=== PATIENT | female | born 1995 | race Caucasian/White ===

== ENCOUNTER 2022-10-16 14:04 | Emergency (ER) | payer OTHER, SELFPAY ==
[2022-10-16 14:14] VITALS: BP 137/92; PULSE 71; RESP 18; TEMP 36.8; O2SAT 99; BMI 38.1
--- NOTE | 2022-10-16 14:36 | ED.DENTAL1 ---
HPI - Dental/Oral General Chief complaint: Dental/Oral Stated complaint: SWOLLEN FACE Time Seen by Provider: 10/16/22 14:16 Source: patient Mode of arrival: walk-in Limitations: no limitations History of Present Illness HPI Narrative: The patient presented to the ER with a right-sided dental pain that started yesterday and she mentioned that she have other dental issues and she was planned to have surgery for her teeth but she does not have time The patient denies any other complaints Related Data Previous Rx's Medication Instructions Recorded amoxicillin 875 mg-potassium 1 tab PO Q12H #20 tabs 10/16/22 clavulanate 125 mg tablet diclofenac sodium 75 mg 75 mg PO BID PRN pain #10 tabs 10/16/22 tablet,delayed release Allergies Allergy/AdvReac Type Severity Reaction Status Date / Time No Known Drug Allergies Allergy Verified 10/16/22 14:16 Review of Systems ROS Status of ROS 10 or more systems reviewed and unremarkable except as noted in history and below PFSH PFSH Social History Smoking status: Former smoker Exam Narrative Exam Narrative: Nurses notes and vital signs reviewed and patient is not hypoxic. Dental exam shows the patient have total decay of the teeth #1 as well as #32 they both have tenderness on palpation as well as gum inflammation, otherwise the patient have good dental hygiene Right-sided lymphadenopathy noted in her cervical area and no compromise of the airway no tonsillar edema General: Well-appearing and in no apparent distress. Skin: Warm, dry, no pallor noted. No rash. Head: Normocephalic, atraumatic. Neck: Supple, Eye: Pupils are equal, round and EOMI. No scleral icterus. Ears, Nose, Mouth, and Throat: TM are clear, no nasal mucosal hypertrophy. Oral mucosa is moist, no posterior oropharynx erythema, uvula is mid-line Cardiovascular: Regular Rate and Rhythm without murmur, gallop or rub. Respiratory: No accessory muscle use or respiratory distress. Lungs are clear to auscultation, no wheezing, rales or rhonchi Chest Wall: no tenderness Back: No midline thoracic or lumbar vertebral tenderness. No CVA tenderness Musculoskeletal: normal ROM, no calf or popliteal tenderness, no lower extremity edema/swelling GI: Abdomen is soft, non-distended. Normal bowel sounds. No masses appreciated. No tenderness to palpation. No rebound, guarding, or rigidity noted. Neurological: A&O x4. No cranial nerve dysfunction observed. No truncal ataxia. Moves all extremities. Sensation intact. Psychiatric: Cooperative and interactive. Normal mood and affect. Constitutional Vital Signs, click to edit/add: Last Vital Signs Temp 98.2 F 10/16/22 14:14 Pulse 71 10/16/22 14:14 Resp 18 10/16/22 14:14 BP 137/92 H 10/16/22 14:14 Pulse Ox 99 10/16/22 14:14 O2 Del Method Room Air 10/16/22 14:14 Course Vital Signs Vital signs: Vital Signs Temperature 98.2 F 10/16/22 14:14 Pulse Rate 71 10/16/22 14:14 Respiratory Rate 18 10/16/22 14:14 Blood Pressure 137/92 H 10/16/22 14:14 Pulse Oximetry 99 10/16/22 14:14 Oxygen Delivery Method Room Air 10/16/22 14:14 Temperature 98.2 F 10/16/22 14:14 Pulse Rate 71 10/16/22 14:14 Respiratory Rate 18 10/16/22 14:14 Blood Pressure 137/92 H 10/16/22 14:14 Pulse Oximetry 99 10/16/22 14:14 Oxygen Delivery Method Room Air 10/16/22 14:14 MDM - Dental/Oral MDM Narrative Medical decision making narrative: The patient presenting to us with a dental infection right now should be treated with Voltaren as well as Augmentin referred to the dentist with outpatient The patient is to follow up with primary care physician in next 2-3 days or to return to the emergency department should any of the signs or symptoms worsen or new symptoms develop. The patient agrees with the following Diagnosis and Treatment plan and the patient will be discharged home. Discharge Plan Discharge Chief Complaint: Dental/Oral Clinical Impression: Dental abscess Patient Disposition: Home, Self-Care Time of Disposition Decision: 14:27 Condition: Good Mode of Transportation: Private Vehicle Prescriptions / Home Meds: New amoxicillin-pot clavulanate 875-125 mg tablet 1 tab PO Q12H Qty: 20 0RF diclofenac sodium 75 mg tablet,delayed release (DR/EC) 75 mg PO BID PRN (Reason: pain) Qty: 10 0RF Instructions: Dental Abscess (ED) Stand Alone Forms: Portal Instructions Referrals: Shaikh Guillen MD [Primary Care Provider] - 1 week
[2022-10-16] MEDS: BENZOCAINE 30 ML, lidocaine HCL 15 ML MM (14:38)
[2022-10-16] MEDS: KETOROLAC TROMETHAMINE 30 MG/ML VIAL IM (14:38)
--- NOTE | 2022-10-16 15:26 | ED.DENTAL1 ---
HPI - Dental/Oral General Chief complaint: Dental/Oral Stated complaint: SWOLLEN FACE Time Seen by Provider: 10/16/22 14:16 Source: patient Mode of arrival: walk-in Limitations: no limitations Related Data Previous Rx's Medication Instructions Recorded amoxicillin 875 mg-potassium 1 tab PO Q12H #20 tabs 10/16/22 clavulanate 125 mg tablet diclofenac sodium 75 mg 75 mg PO BID PRN pain #10 tabs 10/16/22 tablet,delayed release Allergies Allergy/AdvReac Type Severity Reaction Status Date / Time No Known Drug Allergies Allergy Verified 10/16/22 14:16 PFSH PFS Social History Smoking status: Former smoker Exam Constitutional Vital Signs, click to edit/add: Last Vital Signs Temp 98.2 F 10/16/22 14:14 Pulse 71 10/16/22 14:14 Resp 18 10/16/22 14:14 BP 137/92 H 10/16/22 14:14 Pulse Ox 99 10/16/22 14:14 O2 Del Method Room Air 10/16/22 14:14 Course Vital Signs Vital signs: Vital Signs Temperature 98.2 F 10/16/22 14:14 Pulse Rate 71 10/16/22 14:14 Respiratory Rate 18 10/16/22 14:14 Blood Pressure 137/92 H 10/16/22 14:14 Pulse Oximetry 99 10/16/22 14:14 Oxygen Delivery Method Room Air 10/16/22 14:14 Temperature 98.2 F 10/16/22 14:14 Pulse Rate 71 10/16/22 14:14 Respiratory Rate 18 10/16/22 14:14 Blood Pressure 137/92 H 10/16/22 14:14 Pulse Oximetry 99 10/16/22 14:14 Oxygen Delivery Method Room Air 10/16/22 14:14 Discharge Plan Discharge Chief Complaint: Dental/Oral Clinical Impression: Dental abscess Patient Disposition: Home, Self-Care Time of Disposition Decision: 14:27 Condition: Good Mode of Transportation: Private Vehicle Prescriptions / Home Meds: New amoxicillin-pot clavulanate 875-125 mg tablet 1 tab PO Q12H Qty: 20 0RF diclofenac sodium 75 mg tablet,delayed release (DR/EC) 75 mg PO BID PRN (Reason: pain) Qty: 10 0RF Instructions: Dental Abscess (ED) Stand Alone Forms: Portal Instructions Referrals: Shaikh Guillen MD [Primary Care Provider] - 1 week Discharge Date/Time: 10/16/22 14:44
== END 2022-10-16 14:44 | disposition home or self-care (01) ==
PROVIDERS: Emergency Provider Emergency Medicine; PCP Internal Medicine
DX: K04.7 Periapical abscess without sinus (principal); Z87.891 Personal history of nicotine dependence
CPT/HCPCS: 96372; 99284

== ENCOUNTER 2023-03-25 13:00 | Emergency (ER) | payer OTHER, SELFPAY ==
[2023-03-25 13:04] VITALS: BP 146/100; PULSE 105; RESP 18; TEMP 36.6; O2SAT 100; BMI 31.5
--- NOTE | 2023-03-25 13:31 | ED.DENTAL1 ---
HPI - Dental/Oral General Chief complaint: Dental/Oral Stated complaint: TOOTH/MOUTH PAIN Time Seen by Provider: 03/25/23 13:11 Source: patient Mode of arrival: walk-in Limitations: no limitations History of Present Illness HPI Narrative: 27-year-old female presents for toothache. She is complaining of pain to the left lower jaw posteriorly and she has a dentist appointment on the . She came in to get something for pain and an antibiotic. The pain is throbbing and moderate and continuous. No difficulty breathing or swallowing. Related Data Previous Rx's Medication Instructions Recorded amoxicillin 875 mg-potassium 1 tab PO Q12H #20 tabs 10/16/22 clavulanate 125 mg tablet diclofenac sodium 75 mg 75 mg PO BID PRN pain #10 tabs 10/16/22 tablet,delayed release acetaminophen 300 mg-codeine 30 mg 1 tab PO Q6H PRN pain 5 days #20 03/25/23 tablet tabs ibuprofen 800 mg tablet 800 mg PO Q8H PRN pain #20 tabs 03/25/23 penicillin V potassium 250 mg 250 mg PO QID 10 days #40 tabs 03/25/23 tablet Allergies Allergy/AdvReac Type Severity Reaction Status Date / Time No Known Drug Allergies Allergy Verified 10/16/22 14:16 Review of Systems ROS Narrative A ten point review of systems is negative except as noted above. PFSH PFSH Social History Smoking status: Never smoker Exam Narrative Exam Narrative: Nurses note and vital signs reviewed and patient is not hypoxic. General: The patient appears well and in no apparent distress. Patient is resting comfortably on cart. Skin: Warm, dry, no pallor noted. There is no rash noted. Head: Normocephalic, atraumatic Eye: Normal conjunctiva, no drainage Ears, Nose, Mouth, and Throat: oral mucosa is moist. Nares patent. No facial swelling or erythema. Dental caries is noted in the left mandibular posterior teeth. No bleeding or pus present. No swelling to the floor of her mouth. She is handling her oral secretions well. Cardiovascular: Regular Rate and Rhythm Respiratory: Patient is in no distress, no accessory muscle use, lungs are clear to auscultation, no wheezing, rales or rhonchi Back: non-tender GI: Soft and nontender Musculoskeletal: No joint swelling Neurological: A&O, normal speech Psychiatric: Cooperative Constitutional Vital Signs, click to edit/add: Last Vital Signs Temp 97.9 F 03/25/23 13:04 Pulse 105 H 03/25/23 13:04 Resp 18 03/25/23 13:04 BP 146/100 H 03/25/23 13:04 Pulse Ox 100 03/25/23 13:04 O2 Del Method Room Air 03/25/23 13:04 Course Vital Signs Vital signs: Vital Signs Temperature 97.9 F 03/25/23 13:04 Pulse Rate 105 H 03/25/23 13:04 Respiratory Rate 18 03/25/23 13:04 Blood Pressure 146/100 H 03/25/23 13:04 Pulse Oximetry 100 03/25/23 13:04 Oxygen Delivery Method Room Air 03/25/23 13:04 Temperature 97.9 F 03/25/23 13:04 Pulse Rate 105 H 03/25/23 13:04 Respiratory Rate 18 03/25/23 13:04 Blood Pressure 146/100 H 03/25/23 13:04 Pulse Oximetry 100 03/25/23 13:04 Oxygen Delivery Method Room Air 03/25/23 13:04 MDM - Dental/Oral MDM Narrative Medical decision making narrative: Just provided prescriptions for pain medicine and antibiotic. Follow-up with dentistry as scheduled. Treatment diagnosis and follow-up were discussed with the patient. Differential Diagnosis Differential diagnosis: Likely gingival abscess, dental caries, toothache, dental abscess and fracture of tooth Discharge Plan Discharge Chief Complaint: Dental/Oral Clinical Impression: Toothache, Dental caries Patient Disposition: Home, Self-Care Time of Disposition Decision: 13:29 Condition: Good Mode of Transportation: Private Vehicle Prescriptions / Home Meds: New acetaminophen-codeine 300-30 mg tablet 1 tab PO Q6H PRN (Reason: pain) 5 Days Qty: 20 0RF penicillin V potassium 250 mg tablet 250 mg PO QID 10 Days Qty: 40 0RF ibuprofen 800 mg tablet 800 mg PO Q8H PRN (Reason: pain) Qty: 20 0RF No Action amoxicillin-pot clavulanate 875-125 mg tablet 1 tab PO Q12H Qty: 20 0RF diclofenac sodium 75 mg tablet,delayed release (DR/EC) 75 mg PO BID PRN (Reason: pain) Qty: 10 0RF Stand Alone Forms: Portal Instructions Referrals: Shaikh Guillen MD [Primary Care Provider] - 1 week
[2023-03-25 13:36] VITALS: BP 107/63; PULSE 88; RESP 18; O2SAT 99
== END 2023-03-25 13:37 | disposition home or self-care (01) ==
PROVIDERS: Emergency Provider Emergency Medicine; PCP Internal Medicine
DX: K02.9 Dental caries, unspecified (principal); K08.89 Other specified disorders of teeth and supporting structures
CPT/HCPCS: 99283

== ENCOUNTER 2023-06-21 20:31 | Emergency (ER) | payer OTHER, SELFPAY ==
[2023-06-21 20:34] VITALS: BP 130/88; PULSE 100; TEMP 36.9; O2SAT 98; BMI 30.1
--- NOTE | 2023-06-21 20:41 | XR_ITS ---
The [address] [address] Patient Name: RAJ JOLLEY MRN: [id number] date: 1995 Sex: F Assigned Patient Location: ER Current Patient Location: ED.MAIN Accession/Order Number: [id number] Exam Date: 06/21/2023 20:55 Report Date: 06/21/2023 21:44 At the request of: YODIT MARKER Procedure: XR finger RT min 2V XR finger RT min 2V, 06/21/2023 7:55 PM CDT: History: right thumb injury. . Comparison: None. Technique: 3 views right thumb Findings/Impression: There is no fracture or malalignment. The soft tissues are normal. Electronically authenticated by: MAY VAUGHN Date: 06/21/2023 21:44
--- NOTE | 2023-06-21 20:48 | ED.UPPEXIN1 ---
HPI HPI - Extremity Injury (Upper) General Chief Complaint: Extremity Injury, Upper Stated Complaint: Upper Injury Time Seen by Provider: 06/21/23 20:41 Source: patient Mode of arrival: walk-in Limitations: no limitations History of Present Illness HPI narrative: This 27-year-old female who is right-hand dominant presents for evaluation of a right thumb injury. The patient was mopping her floors at home and slipped on the wet floors and fell backwards. She attempted to break her fall with her right hand and injured her right thumb. She denies any head injury. She has no neck or back pain. The injury occurred about 2-1/2 hours ago. She took 2 Tylenol prior to arrival. She has pain at the right thenar eminence which radiates to the distal end of the right thumb. She has no numbness or tingling. No additional injuries or complaints. Related Data Allergies Allergy/AdvReac Type Severity Reaction Status Date / Time No Known Drug Allergies Allergy Verified 06/21/23 20:39 Opioid HPI Opioid Management Most Recent Pain and Opioid Data: Last Pain Scale 5 06/21/23 21:17 Review of Systems ROS Status of ROS 10 or more systems reviewed and unremarkable except as noted in history and below [facility] Social History Smoking status: Never smoker Exam Narrative Exam Narrative: Vital signs and Nursing Notes reviewed: Vital signs are normal General: Awake, alert, oriented, uncomfortable appearing female. She is holding her right thumb area on a bag of ice, GCS 15, no respiratory distress HEENT: Normocephalic atraumatic Neck: Supple, no midline bony vertebral tenderness or step-off Chest: Lungs are clear to auscultation with good air entry, there is no wheezing rhonchi or rales appreciated no accessory muscle use, patient is speaking in complete sentences-no chest wall tenderness to palpation CVS: Regular rate and rhythm S1-S2, no murmurs rubs or gallops, pulses are brisk and equal bilaterally Extremities: There is tenderness and mild swelling at the right thenar eminence. Increased pain with axial loading of the thumb. Patient is able to approximate thumb and all fingers loosely but this causes discomfort in the thumb area when she approximate the thumb and the fourth and fifth finger. No bony deformity noted. Radial pulses brisk. Capillary refill in the fingers is less than 2 seconds Skin: Normal in appearance without rash,pallor, petechiae or purpura Neuro: No focal deficits Constitutional Vital Signs, click to edit/add: Last Vital Signs Temp 98.4 F 06/21/23 20:34 Pulse 100 H 06/21/23 20:34 Resp 16 06/21/23 20:34 BP 130/88 06/21/23 20:34 Pulse Ox 98 06/21/23 20:34 O2 Del Method Room Air 06/21/23 20:34 Course Vital Signs Vital signs: Vital Signs Temperature 98.4 F 06/21/23 20:34 Pulse Rate 100 H 06/21/23 20:34 Respiratory Rate 16 06/21/23 20:34 Blood Pressure 130/88 06/21/23 20:34 Pulse Oximetry 98 06/21/23 20:34 Oxygen Delivery Method Room Air 06/21/23 20:34 Temperature 98.4 F 06/21/23 20:34 Pulse Rate 100 H 06/21/23 20:34 Respiratory Rate 16 06/21/23 20:34 Blood Pressure 130/88 06/21/23 20:34 Pulse Oximetry 98 06/21/23 20:34 Oxygen Delivery Method Room Air 06/21/23 20:34 MDM - Extremity Injury (Upper) MDM Narrative Medical decision making narrative: This 19-year-old female who is right-hand dominant presents for evaluation of a right thumb injury. She was mopping the floor when she slipped and fell backwards and braced her fall with her right hand which ended up underneath her. She has tenderness and mild swelling at the thenar eminence. She is neurologically intact. She had taken Tylenol prior to arrival and was medicated with ibuprofen in the emergency department. X-ray of the right thumb was ordered and does not show any sign of fracture or dislocation. Procedure note: Splint care without manipulation. A Sands wrap was applied to the right thumb and hand to immobilize the right thumb by myself. Patient tolerated procedure well. Medical Records Medical records narrative: The [address] [address] XRay Report Signed Patient: RAJ JOLLEY MR#: [id number] : 1995 Acct:[id number] Age/Sex: 27 / F ADM Date: 06/21/23 Loc: ER Attending Dr: Ordering Physician: Leyla De La Garza Date of Service: 06/21/23 Procedure(s): XR finger RT min 2V Accession Number(s): [id number] cc: Shaikh Logan Guillen; Leyla De La Garza~ The [address] [address] Patient Name: RAJ JOLLEY MRN: [id number] date: 1995 Sex: F Assigned Patient Location: ER Current Patient Location: ED.MAIN Accession/Order Number: [id number] Exam Date: 06/21/2023 20:55 Report Date: 06/21/2023 21:44 At the request of: LEYLA DE LA GARZA Procedure: XR finger RT min 2V XR finger RT min 2V, 06/21/2023 7:55 PM CDT: History: right thumb injury. . Comparison: None. Technique: 3 views right thumb Findings/Impression: There is no fracture or malalignment. The soft tissues are normal. Electronically authenticated by: MAY VAUGHN Date: 06/21/2023 21:44 Discharge Plan Discharge Stand Alone Forms: Portal Instructions Chief Complaint: Extremity Injury, Upper Clinical Impression: Fall from standing, Sprain of right thumb Patient Disposition: Home, Self-Care Time of Disposition Decision: 21:39 Condition: Good Print Language: Kyrgyz Instructions: Finger Sprain (ED) Referrals: Rickey Pritchard MD [Physician] - 1 week Shaikh Guillen MD [Primary Care Provider] - 1 week
--- OUTSIDE RECORDS SUMMARY | 2023-06-21 20:52 | XMS_ITS | CCD ---
Author Organization [facility] Care Team Providers Care Pcmh Specialist Name Role Phone DR CARLI KABA Consulting Unavailable JHON, DR BOYCE Admitting Unavailable JHON, DR BOYCE [facility]ending Un[facility] Unavailable PATRICIA EVANS Consulting Unavailable JHON, DR BOYCE Procedure Practitioner Unavailab le JHON, DR BOYCE Consulting Unavailable JHON, DR BOYCE Admitting Unavailable JHON, DR BOYCE Attending Un[facility] Unavailable JHON, DR BOYCE Attending Unavailable JHON, DR BOYCE Consulting Unavailable JHON, DR BOYCE Admitting Unavailable FA[facility]AD, [facility] Primary Care Unavailable KATSETH SQUIRES Consulting Unavailable FAWWAD, [facility] Primary Care Unavailable KATKO SETH Do Admitting Unavailable KATSETH SQUIRES Attending Unavailable KATSETH SQUIRES Attending Unavailable FAWWAD, [facility] Primary Care Unavailable KATKO SETH D Consulting Unavailable LITZY SETH D Admitting Unavailable MARKER, DR MONSIVAIS Admitting Unavailable MARKER, DR MONSIVAIS Attending Unavailable MARKER, DR MONSIVAIS Consulting Unavailable WNHD, [facility] Primary Care Unavailable DR JUVENAL NARVAEZ Admitting Unavailable BRICE, DR JUVENAL Berry Attending Unavailable FA[facility]AD, [facility] Primary Care Unavailable JHON, DR BOYCE Admitting Unavailable JHON, DR BOYCE Attending Un[facility] Care Unavailable JHON, DR BOYCE Admitting Unavailable JHON, DR BOYCE Attending Unavailable JHON, DR BOYCE Consulting Unavailable FAWNHD, [facility] Primary Care Unavailable ROJAS ASENCIO Attending Unavailable ROJAS ASENCIO Attending Unavailable ROJAS ASENCIO Attending Unavailable Problems Active Problems Problem Classification Problem Date Documented Date Episodic/Chronic Disorders of teeth and jaw (7 sources) Other specified disorders of teeth and supporting structures; Translations: [Periapical abscess without sinus] Onset: 08-02-2021 Episodic Immunizations and screening for infectious disease (1 source) Encounter for screening for human papillomavirus (HPV); Translations: [ENC SCREENING HUMAN PAPILLOMAVIRUS] Onset: 08-26-2021 Episodic Menstrual disorders (6 sources) Excessive and frequent menstruation with regular cycle; Translations: [Dysmenorrhea, unspecified] Onset: 11-14-2020 Chronic Other female genital disorders (1 source) Abnormal uterine and vaginal bleeding, unspecified; Translations: [ABNORMAL UTERINE VAGINAL BLEED UNS] Onset: 12-21-2020 Chronic Other female genital disorders (1 source) Unspecified dyspareunia; Translations: [UNSPECIFIED DYSPAREUNIA] Onset: 12-21-2020 Chronic Other screening for suspected conditions (not mental disorders or infectious disease) (4 sources) Encounter for screening for malignant neoplasm of cervix; Translations: [ENC SCREENING MALIG NEOPLASM CERV] Onset: 08-25-2021 Episodic Residual codes; unclassified (4 sources) Procedure and treatment not carried out due to patient leaving prior to being seen by health care provider; Translations: [PROC AND TX NOT CARRIED OUT PT LEAVE] Onset: 10-15-2021 Episodic Substance-related disorders (1 source) Nicotine dependence, cigarettes, uncomplicated; Translations: [NICOTINE DEPEND CIGARETTES UNCOMP] Onset: 10-19-2021 Chronic Unclassified (1 source) CONTACT W/AND (SUSP) EXPOS COVID-19; Translations: [CONTACT W/AND (SUSP) EXPOS COVID-19] Onset: 12-13-2020 Past or Other Problems Problem Classification Problem Date Documented Da te Episodic/Chronic Abdominal pain (1 source) Pelvic and perineal pain; Translations: [PELVIC AND PERINEAL PAIN] Onset: 12-21-2020 Episodic Results Test Name Value Interpretation Reference Range Facil ity PAP ACOG PANEL 2: 21 to 29on 08-31-2021 . . Normal [facility] Comment on above: Performed By: #### [id number] #### [facility] [address] [address] [address] Virginie Vela Age Gdln ACOG Testing - Normal [facility] Comment on above: Performed By: #### [id number] #### [facility] [address] [place] [address] Dr. Virginie Vela DIAGNOSIS: Comment Normal [facility] Comment on above: Result Comment: NEGA TIVE FOR INTRAEPITHELIAL LESION OR MALIGNANCY. THIS SPECIMEN WAS RESCREENED PART OF OUR MAIL DELIVERER PROGRAM. Performed By: #### [id number] #### [facility] [address] [place] [address] Dr. Virginie Vela Methodology: Comment Normal [facility] Comment on above: Result Comment: This liquid based ThinPrep(R) pap test was screened with the use of an image guided system. Performed By: #### [id number] #### [facility] [address] [place] [address] Dr. Virginie Vela Note: Comment Normal [facility] Comment on above: Result Comment: The Pap smear is a screening test designed to aid in the detection of premalignant and malignant conditions of the uterine cervix. It is not a diagnostic procedure and should not be used as the sole means of detecting cervical cancer. Both false-positive and false-negative reports do occur. . Performed By: #### [id number] #### [facility] [address] [place] [address] Dr. Virginie Vela Performed by: Comment Normal [facility] Comment on above: Result Comment: Joaquina Rutherford, Strip Roller Performed By: #### [id number] #### [facility] [address] [place] [address] Dr. Virginie Vela QC reviewed by: Comment Normal [facility] Comment on above: Result Comment: Sarah Flor, Supervisory Strip Roller (ASCP) Performed By: #### [id number] #### [facility] [address] [place] [address] Dr. Virginie Vela Reflex Criteria: Comment Normal [facility] Comment on above: Result Comment: The HPV DNA reflex criteria were not met with this specimen result therefore, no HPV testing was performed. . Performed By: #### [id number] #### [facility] [address] [place] [address] Dr. Virginie Vela Specimen adequacy: Comment Normal [facility] Comment on above: Result Comment: Sati sfactory for evaluation. No endocervical component is identified. Performed By: #### [id number] #### [facility] [address] [place] [address] Dr. Virginie Vela BUNon 12-12-2020 Urea nitrogen [Mass/Vol] 12.0 mg/dL Normal 7.0-17.0 [facility] Comment on above: Performed By: #### C BC #### [facility] [address] [place] [address] Dr. Virginie Vela CBC AUTO DIFFon 12-12-2020 BASO # 0.0 103/ul Normal 0.0-0.1 [facility] Comment on above: Performed By: #### C BC #### [facility] [address] [place] [address] Dr. Virginie Vela Basophils/100 WBC (Bld) 0.2 % Normal 0.2-2.0 [facility] Comment on above: Performed By: #### C BC #### [facility] [address] [place] [address] Dr. Virginie Vela EO # 0.1 103/ul Normal 0.0-0.7 [facility] Comment on above: Performed By: #### C BC #### [facility] [address] [place] [address] Dr. Virginie Vela Eosinophils/100 WBC (Bld) 0.5 % Critically low 0.9-7.0 [facility] Comment on above: Performed By: #### C BC #### [facility] [address] [place] [address] Dr. Virginie Vela Erythrocyte distribution width (RBC) [Ratio] 12.6 % Normal 11.0-15.0 [facility] Comment on above: Performed By: #### C BC #### [facility] [address] [place] [address] Dr. Virginie Vela Hematocrit (Bld) [Volume fraction] 36.1 % Normal 36.0-48.0 [facility] Comment on above: Performed By: #### C BC #### [facility] [address] [place] [address] Dr. Virginie Vela Hemoglobin (Bld) [Mass/Vol] 12.4 g/dL Normal 12.0-16.0 [facility] Comment on above: Performed By: #### C BC #### [facility] [address] [place] [address] Dr. Virginie Vela IG # 0.04 10e3/ul Critically high 0.00-0.03 [facility] Comment on above: Performed By: #### C BC #### [facility] [address] [place] [address] Dr. Virginie Vela IG % 0.4 % Normal 0.0-0.5 [facility] Comment on above: Performed By: #### C BC #### [facility] [address] [place] [address] Dr. Virginie Vela LYMPH # 2.8 103/ul Normal 1.2-3.8 [facility] Comment on above: Performed By: #### C BC #### [facility] [address] [place] [address] Dr. Virginie Vela Lymphocytes/100 WBC (Bld) 24.9 % Normal 20.5-60.0 [facility] Comment on above: Performed By: #### C BC #### [facility] [address] [place] [address] Dr. Virginie Vela MANUAL DIFF REQ NO Normal [facility] Comment on above: Performed By: #### C BC #### [facility] [address] [place] [address] Dr. Virginie Vela MCH (RBC) [Entitic mass] 30.9 pg Normal 26.7-34.0 [facility] Comment on above: Performed By: #### C BC #### [facility] [address] [place] [address] Dr. Virginie Vela MCHC (RBC) [Mass/Vol] 34.3 g/dL Normal 29.9-35.2 [facility] Comment on above: Performed By: #### C BC #### [facility] [address] [place] [address] Dr. Virginie Vela MCV (RBC) [Entitic vol] 90.0 fL Normal 81.0-99.0 [facility] Comment on above: Performed By: #### C BC #### [facility] [address] [place] [address] Dr. Virginie Vela MONO # 0.8 103/ul Normal 0.3-0.8 [facility] Comment on above: Performed By: #### C BC #### [facility] [address] [place] [address] Dr. Virginie Vela Monocytes/100 WBC (Bld) 7.6 % Normal 1.7-12.0 [facility] Comment on above: Performed By: #### C BC #### [facility] [address] [place] [address] Dr. Virginie Vela NEUT # 7.4 103/ul Critically high 1.4-6.5 [facility] Comment on above: Performed By: #### C BC #### [facility] [address] [place] [address] Dr. Virginie Vela Neutrophils/100 WBC (Bld) 66.4 % Normal 43.0-75.0 [facility] Comment on above: Performed By: #### C BC #### [facility] [address] [place] [address] Dr. Virginie Vela Platelet mean volume (Bld) [Entitic vol] 9.4 fL Critically low 9.5-13.5 [facility] Comment on above: Performed By: #### C BC #### [facility] [address] [place] [address] Dr. Virginie Vela PLT 189 103/ul Normal 150-450 [facility] Comment on above: Performed By: #### C BC #### [facility] [address] [place] [address] Dr. Virginie Vela RBC 4.01 106/ul Critically low 4.20-5.40 [facility] Comment on above: Performed By: #### C BC #### [facility] [address] [place] [address] Dr. Virginie Vela WBC 11.1 103/ul Critically high 4.0-11.0 [facility] Comment on above: Performed By: #### C BC #### [facility] [address] [place] [address] Dr. Virginie Vela CREATININEon 12-12-2020 Creatinine [Mass/Vol] 0.75 mg/dL Normal 0.52-1.04 [facility] Comment on above: Performed By: #### C MARCE, BUN #### [facility] [address] [place] [address] Dr. Virginie Vela EGFR-AF GUINEAN >60 Normal >=60 [facility] Comment on above: Performed By: #### C MARCE, BUN #### [facility] [address] [place] [address] Dr. Virginie Vela EGFR-NON AF GUINEAN >60 Normal >=60 [facility] Comment on above: Performed By: #### C MARCE, BUN #### [facility] [address] [place] [address] Dr. Virginie Vela CBC AUTO DIFFon 12-11-2020 BASO # 0.1 103/ul Normal 0.0-0.1 [facility] Comment on above: Performed By: #### C BC #### [facility] [address] [place] [address] Dr. Virginie Vela Basophils/100 WBC (Bld) 0.7 % Normal 0.2-2.0 [facility] Comment on above: Performed By: #### C BC #### [facility] [address] [place] [address] Dr. Virginie Vela EO # 0.3 103/ul Normal 0.0-0.7 [facility] Comment on above: Performed By: #### C BC #### [facility] [address] [place] [address] Dr. Virginie Vela Eosinophils/100 WBC (Bld) 3.6 % Normal 0.9-7.0 [facility] Comment on above: Performed By: #### C BC #### [facility] [address] [place] [address] Dr. Virginie Vela Erythrocyte distribution width (RBC) [Ratio] 13.0 % Normal 11.0-15.0 [facility] Comment on above: Performed By: #### C BC #### [facility] [address] [place] [address] Dr. Virginie Vela Hematocrit (Bld) [Volume fraction] 42.8 % Normal 36.0-48.0 [facility] Comment on above: Performed By: #### C BC #### [facility] [address] [place] [address] Dr. Virginie Vela Hemoglobin (Bld) [Mass/Vol] 14.4 g/dL Normal 12.0-16.0 [facility] Comment on above: Performed By: #### C BC #### [facility] [address] [place] [address] Dr. Virginie Vela IG # 0.02 10e3/ul Normal 0.00-0.03 [facility] Comment on above: Performed By: #### C BC #### [facility] [address] [place] [address] Dr. Virginie Vela IG % 0.3 % Normal 0.0-0.5 [facility] Comment on above: Performed By: #### C BC #### [facility] [address] [place] [address] Dr. Virginie Vela LYMPH # 2.6 103/ul Normal 1.2-3.8 [facility] Comment on above: Performed By: #### C BC #### [facility] [address] [place] [address] Dr. Virginie Vela Lymphocytes/100 WBC (Bld) 36.0 % Normal 20.5-60.0 [facility] Comment on above: Performed By: #### C BC #### [facility] [address] [place] [address] Dr. Virginie Vela MANUAL DIFF REQ NO Normal [facility] Comment on above: Performed By: #### C BC #### [facility] [address] [place] [address] Dr. Virginie Vela MCH (RBC) [Entitic mass] 30.3 pg Normal 26.7-34.0 [facility] Comment on above: Performed By: #### C BC #### [facility] [address] [address] [address] Virginie Vela MCHC (RBC) [Mass/Vol] 33.6 g/dL Normal 29.9-35.2 [facility] Comment on above: Performed By: #### C BC #### [facility] [address] [address] [address] Virginie Vela MCV (RBC) [Entitic vol] 90.1 fL Normal 81.0-99.0 [facility] Comment on above: Performed By: #### C BC #### [facility] [address] [address] [address] Virginie Vela MONO # 0.5 103/ul Normal 0.3-0.8 [facility] Comment on above: Performed By: #### C BC #### [facility] [address] [place] [address] Dr. Virginie Vela Monocytes/100 WBC (Bld) 6.3 % Normal 1.7-12.0 [facility] Comment on above: Performed By: #### C BC #### [facility] [address] [place] [address] Dr. Virginie Vela NEUT # 3.9 103/ul Normal 1.4-6.5 [facility] Comment on above: Performed By: #### C BC #### [facility] [address] [address] [address] Virginie Vela Neutrophils/100 WBC (Bld) 53.1 % Normal 43.0-75.0 [facility] Comment on above: Performed By: #### C BC #### [facility] [address] [address] [address] Virginie Vela Platelet mean volume (Bld) [Entitic vol] 9.2 fL Critically low 9.5-13.5 [facility] Comment on above: Performed By: #### C BC #### [facility] [address] [address] [address] Virginie Vela PLT 246 103/ul Normal 150-450 [facility] Comment on above: Performed By: #### C BC #### [facility] [address] [address] [address] Virginie Vela RBC 4.75 106/ul Normal 4.20-5.40 [facility] Comment on above: Performed By: #### C BC #### [facility] [address] [address] [address] Virginie Vela WBC 7.3 103/ul Normal 4.0-11.0 [facility] Comment on above: Performed By: #### C BC #### [facility] [address] [address] [address] Virginie Vela PREG QUANT HCGon 12-11-2020 HCG QUANT <1 Normal [facility] Comment on above: Performed By: #### P REGQNT #### [facility] [address] [place] [address] Dr. Virginie Vela HCG RANGE SEE BELOW Normal [facility] Comment on above: Result Comment: 5-50 0-1 WEEK 40-300 1-2 WEEKS 100-1,000 2-3 WEEKS 500-6,000 3-4 WEEKS 5,000-200,000 1-2 MONTHS 10,000-100,000 2-3 MONTHS 3,000-50,000 2ND TRIMESTER 1,000-50,000 3RD TRIMESTER Performed By: #### P REGQNT #### [facility] [address] [place] [address] Dr. Virginie Vela [facility]on SARS-CoV-2 (COVID-19) RNA TATYANA+probe Ql (Unsp spec) Not detected Normal NOT DETECTED [facility] Comment on above: Result Comment: This test is not yet approved or cleared by the [place] FDA. When there are no FDA-approved or cleared tests available, and other criteria are met, FDA can make tests available under an emergency access mechanism called an Emergency Use Authorization (EUA). The EUA for this test is supported by the [place] of Health and Human Service's (HHS's) declaration that circumstances exist to justify the emergency use of in vitro diagnostics for the detection and/or diagnosis of the virus that causes COVID-19. This EUA will remain in effect (meaning this test can be used) for the duration of the COVID-19 declaration justifying emergency of IVDs, unless it is terminated or revoked by FDA (after which the test may no longer be used). When diagnostic testing is negative, the possibility of a false negative should be considered in the context of a patient's recent exposures and the presence of clinical signs and symptoms consistent with SARS-CoV-2. Performed By: #### C BC #### [facility] [address] [place] [address] Dr. Virginie Vela TYPE AND SCREENon 12-08-2020 TYPE AND SCREEN Negative Normal [facility] Comment on above: Performed By: #### T NS #### [facility] [address] [place] [address] Dr. Virginie Vela CBC AUTO DIFFon 11-10-2020 BASO # 0.1 103/ul Normal 0.0-0.1 [facility] Comment on above: Performed By: #### C BC #### [facility] [address] [place] [address] Dr. Virginie Vela Basophils/100 WBC (Bld) 0.7 % Normal 0.2-2.0 [facility] Comment on above: Performed By: #### C BC #### [facility] [address] [place] [address] Dr. Virginie Vela EO # 0.3 103/ul Normal 0.0-0.7 [facility] Comment on above: Performed By: #### C BC #### [facility] [address] [place] [address] Dr. Virginie Vela Eosinophils/100 WBC (Bld) 3.4 % Normal 0.9-7.0 [facility] Comment on above: Performed By: #### C BC #### [facility] [address] [place] [address] Dr. Virginie Vela Erythrocyte distribution width (RBC) [Ratio] 12.5 % Normal 11.0-15.0 [facility] Comment on above: Performed By: #### C BC #### [facility] [address] [place] [address] Dr. Virginie Vela Hematocrit (Bld) [Volume fraction] 42.9 % Normal 36.0-48.0 [facility] Comment on above: Performed By: #### C BC #### [facility] [address] [place] [address] Dr. Virginie Vela Hemoglobin (Bld) [Mass/Vol] 14.3 g/dL Normal 12.0-16.0 [facility] Comment on above: Performed By: #### C BC #### [facility] [address] [place] [address] Dr. Virginie Vela IG # 0.02 10e3/ul Normal 0.00-0.03 [facility] Comment on above: Performed By: #### C BC #### [facility] [address] [place] [address] Dr. Virginie Vela IG % 0.3 % Normal 0.0-0.5 [facility] Comment on above: Performed By: #### C BC #### [facility] [address] [place] [address] Dr. Virginie Vela LYMPH # 2.8 103/ul Normal 1.2-3.8 [facility] Comment on above: Performed By: #### C BC #### [facility] [address] [place] [address] Dr. Virginie Vela Lymphocytes/100 WBC (Bld) 37.3 % Normal 20.5-60.0 [facility] Comment on above: Performed By: #### C BC #### [facility] [address] [place] [address] Dr. Virginie Vela MANUAL DIFF REQ NO Normal [facility] Comment on above: Performed By: #### C BC #### [facility] [address] [place] [address] Dr. Virginie Vela MCH (RBC) [Entitic mass] 29.7 pg Normal 26.7-34.0 [facility] Comment on above: Performed By: #### C BC #### [facility] [address] [place] [address] Dr. Virginie Vela MCHC (RBC) [Mass/Vol] 33.3 g/dL Normal 29.9-35.2 [facility] Comment on above: Performed By: #### C BC #### [facility] [address] [place] [address] Dr. Virginie Vela MCV (RBC) [Entitic vol] 89.0 fL Normal 81.0-99.0 [facility] Comment on above: Performed By: #### C BC #### [facility] [address] [place] [address] Dr. Virginie Vela MONO # 0.4 103/ul Normal 0.3-0.8 [facility] Comment on above: Performed By: #### C BC #### [facility] [address] [place] [address] Dr. Virginie Vela Monocytes/100 WBC (Bld) 5.7 % Normal 1.7-12.0 [facility] Comment on above: Performed By: #### C BC #### [facility] [address] [place] [address] Dr. Virginie Vela NEUT # 4.0 103/ul Normal 1.4-6.5 [facility] Comment on above: Performed By: #### C BC #### [facility] [address] [place] [address] Dr. Virginie Vela Neutrophils/100 WBC (Bld) 52.6 % Normal 43.0-75.0 [facility] Comment on above: Performed By: #### C BC #### [facility] [address] [place] [address] Dr. Virginie Vela Platelet mean volume (Bld) [Entitic vol] 9.2 fL Critically low 9.5-13.5 [facility] Comment on above: Performed By: #### C BC #### [facility] [address] [place] [address] Dr. Virginie Vela PLT 238 103/ul Normal 150-450 [facility] Comment on above: Performed By: #### C BC #### [facility] [address] [place] [address] Dr. Virginie Vela RBC 4.82 106/ul Normal 4.20-5.40 [facility] Comment on above: Performed By: #### C BC #### [facility] [address] [place] [address] Dr. Virginie Vela WBC 7.6 103/ul Normal 4.0-11.0 [facility] Comment on above: Performed By: #### C BC #### [facility] [address] [place] [address] Dr. Virginie Vela TSHon 11-10-2020 TSH 0.662 uIU/mL Normal 0.470-4.680 [facility] Comment on above: Performed By: #### T SH #### [facility] [address] [place] [address] Dr. Virginie Vela TSH RANGE SEE BELOW Normal [facility] Comment on above: Result Comment: <0.3 4 UIU/ml HYPERTHYROID 0.34-5.60 UIU/ml EUTHYROID >5.60 UIU/ml HYPOTHYROID Performed By: #### T SH #### [facility] [address] [place] [address] Dr. Virginie Vela UA RANDOMon 11-10-2020 Bilirubin Ql (U) Negative Normal NEGATIVE [facility] Comment on above: Performed By: #### C BC #### [facility] [address] [place] [address] Dr. Virginie Vela Clarity (U) CLEAR Normal CLEAR [facility] Comment on above: Performed By: #### C BC #### [facility] [address] [place] [address] Dr. Virginie Vela Color (U) LT. YELLOW Normal YELLOW [facility] Comment on above: Performed By: #### C BC #### [facility] [address] [place] [address] Dr. Virginie Vela Glucose Ql (U) Negative Normal NEGATIVE [facility] Comment on above: Performed By: #### C BC #### [facility] [address] [place] [address] Dr. Virginie Vela Hemoglobin Ql (U) Negative Normal NEGATIVE [facility] Comment on above: Performed By: #### C BC #### [facility] [address] [address] [address] Virginie Vela Ketones Ql (U) Negative Normal NEGATIVE [facility] Comment on above: Performed By: #### C BC #### [facility] [address] [address] [address] Virginie Vela LEUKOCYTES Negative Normal NEGATIVE [facility] Comment on above: Performed By: #### C BC #### [facility] [address] [address] [address] Virginie Vela Nitrite Ql (U) Negative Normal NEGATIVE [facility] Comment on above: Performed By: #### C BC #### [facility] [address] [address] [address] Virginie Vela pH (U) 7.0 [pH] Normal 5-9 [facility] Comment on above: Performed By: #### C BC #### [facility] [address] [address] [address] Virginie Vela SPEC GRAVITY 1.010 Normal 1.005-<=1.025 [facility] Comment on above: Performed By: #### C BC #### [facility] [address] [address] [address] Virginie Vela UA PROTEIN Negative Normal NEGATIVE/ TRACE [facility] Comment on above: Performed By: #### C BC #### [facility] [address] [place] [address] Dr. Virginie Vela Urobilinogen Qn (U) 0.2 {Hortensia'U}/dL Normal 0.2 - 1.0 [facility] Comment on above: Performed By: #### C BC #### [facility] [address] [place] [address] Dr. Virginie Vela Encounters Encounter Date Encounter Type Care Provider Facility Start: 02-21-2023 End: 02-21-2023 ambulatory ROJAS ASENCIO Not Available Start: 01-24-2023 End: 01-24-2023 ambulatory ROJAS ASENCIO Not Available Start: 12-27-2022 End: 12-27-2022 ambulatory ROJAS ASENCIO Not Available Start: 10-16-2021 End: 10-16-2021 ambulatory SETH MCGHEE Facility:[facility] Start: 10-15-2021 End: 10-15-[address] JUVENAL NARVAEZ Facility:[facility] Start: 10-14-2021 End: 10-14-[address] YODIT ROSENTHAL Facility:[facility] Start: 08-25-2021 End: 08-25-[address] CARLI KABA Facility:[facility] Start: 07-30-2021 End: 07-30-2021 ambulatory SETH MCGHEE Facility:[facility] Start: 12-13-2020 Encounter for prepro cedural laboratory examination DR CARLI KABA [facility] Start: 12-11-2020 End: 12-12-2020 Evaluation and management of inpatient DR CARLI KABA Facility:[facility] Start: 12-08-2020 End: 12-08-[address] CARLI KABA Facility:[facility] Start: 12-08-2020 End: 12-08-2020 Encounter for preprocedural laboratory examination DR CARLI KABA Facility:[facility] Start: 12-04-2020 Encounter for other preprocedural examination DR CARLI KABA [facility] Start: 11-27-2020 End: 11-28-[address] CARLI KABA Facility:[facility] Start: 11-27-2020 End: 11-28-2020 Encounter for other preprocedural examination DR CARLI KABA Facility:[facility] Start: 11-10-2020 End: 11-11-[address] CARLI KABA Facility:[facility] Procedures Date Procedure Procedure Detail Performing Clinician Start: 12-11-2020 Resection of Bilater al Fallopian Tubes, Open Approach DR CARLI KABA Start: 12-11-2020 Resection of Uterus, Open Approach DR CARLI KABA Payers Date Payer Category Payer Unknown [id number] 2.16.84 [id number] 1994 Unknown [id number] 2.16.84 [id number] 1994 Unknown [id number] 2.16.84 [id number] 1994 Unknown [id number] 2.16.84 [id number] 1994 Unknown [id number] 2.16.84 [id number] 1994 Unknown [id number] 2.16.84 [id number] 1994 Unknown [id number] 2.16.84 [id number] 1994 Unknown [id number] 2.16.84 [id number] 1994 Unknown [id number] 2.16.84 [id number] 1994 Unknown [id number] 2.16.84 [id number] 1994 Unknown [id number] 2.16.840 .[id number] 1994 Unknown [id number] 2.16.840 .[id number] 1959 Unknown [id number] Clinical Note 12-11-2020 Note Date & Type Note [facility] 12-11-2020 Note The [place], [place] NAME: RAJ JOLLEY DATE OF : MEDICAL REC#: [id number] PREVOCATIONAL/REHABILITATION COUNSELOR: NAN ASHADMNARCISO DATE: 12/11/2020 08:23:00 SUPERINTENDENT DATE: 12/12/2020 13:48 DICTATING PHYSICIAN: CARLI KABA DICTATION DATE: 12/11/2020 12:00 OPERATIVE NOTE OPERATION DATE: 12/11/2020 PROCEDURE NAME: Total abdominal hysterectomy with bilateral salpingectomy with cystoscopy. PREOPERATIVE DIAGNOSES: 1. Menorrhagia. 2. Abnormal uterine bleeding. 3. Pelvic pain. 4. Dysmenorrhea. 5. Dyspareunia. POSTOPERATIVE DIAGNOSES: 1. Menorrhagia. 2. Abnormal uterine bleeding. 3. Pelvic pain. 4. Dysmenorrhea. 5. Dyspareunia. ANESTHESIA: General. SURGEON: Carli Kaba D.O. FRONT OFFICE JAVA DEVELOPER: ARGENIS Fiore URINE OUTPUT: Yellow and clear. BLOOD LOSS: 50 mL. SPECIMEN: Uterus and tubes. FINDINGS: Adhesions of the bladder to the anterior abdominal wall, normal-appearing size uterus, normal-appearing ovaries. Evidence of previous partial bilateral tubal ligation. PROCEDURE: Patient was taken back to the Operating Room where she was given general anesthesia without difficulty. She was then prepped and draped in the normal sterile fashion. A Pfannenstiel skin incision was then made 2 cm above the symphysis and pubis and carried down to underlying rectus fascia using a Bovie. The fascia was incised in the midline and extended bilaterally using Gill scissors. Two Treva clamps were placed on the superior aspect of the fascia and dissected off the underlying rectus muscle. The same was performed on the inferior aspect as well. The muscle was then in the midline. The peritoneum was identified and entered bluntly. Peritoneum was then extended superiorly and inferiorly with good visualization of the bladder. An O'Villegas- O-Tremayne retractor was placed into the patient's abdomen. The bowel was packed away with moist laparotomy sponges and the bladder blade was inserted. A Leahey tenaculum was placed on the patient's uterus and used for retraction. LigaSure apparatus was then used to come across the uteroovarian ligament and mesosalpingx on the patient's right side which was then cauterized and transected. This was carried down serially through the broad ligament and across the round ligament. The bladder flap was then created using the Metzenbaum scissors, and the bladder was easily dissected off the patient's lower uterine segment. A curved Albert was placed across the uterine artery on the right side which was clamped, transected, and suture ligated using #0 Monocryl. This was performed on the contralateral side as well. The bladder was further dissected and a Zeppelin clamp was then placed across the uterosacral and cardinal ligaments. This was transected and suture ligated using #0 Monocryl. This was performed on the contralateral side as well. The uterus was then amputated using Janett scissors. The patient's cuff was closed using #0 PDS in a running locked fashion and this was transfixed to the ipsilateral uterosacral and cardinal ligaments. Excellent hemostasis was assured. The patient's abdomen was copiously irrigated using warm saline. Cystoscopy was performed. Bladder was intact. Efflux was noted from both ostia. Cystoscope was removed. After excellent hemostasis was assured, all instruments were removed from the patient's abdomen. The patient's peritoneum was closed using 3-0 Vicryl in a running fashion. The patient's fascia was closed using #0 Vicryl in a running fashion. The patient's skin was closed using emerald. The patient tolerated the procedure well. Sponge, lap, and needle counts were correct times two. Patient taken to the Recovery Room in stable condition. Electronically Authenticated and Edited by: Carli Kaba DO on 12/13/2020 04:59 PM EST [facility] Signed and Approved by: DR CARLI KABA . 12/13/2020 16:59:00 [facility] Discharge summary note 12-11-2020 Note Date & Type Note Facility 12-11-2020 Note DISCHARGE SUMMARY Discharge Date: 12/12/2020 PROCEDURE: Total abdominal hysterectomy with bilateral salpingectomy with cystoscopy. PRIMARY DIAGNOSES: 1. Menorrhagia. 2. Abnormal uterine bleeding. 3. Pelvic pain. 4. Dysmenorrhea. 5. Dyspareunia. HOSPITAL COURSE: As expected. Please see chart for full details. LABORATORY DATA: Please see chart. DISCHARGE CONDITION: Stable. CONSULTATION: Anesthesia. DISCHARGE INSTRUCTIONS: 1. Diet: Regular. 2. Medications: a. Percocet 5/325 one to two p.o. every 4-6 hours p.r.n. pain. b. Motrin 800 one p.o. every 8 hours p.r.n. pain. 3. Followup in 1 week. Restrictions: Pelvic rest for 6 weeks. No heavy lifting. May drive when pain free and no longer on narcotics. IF Signed and Approved by: DR CARLI KABA . 12/25/2020 08:38:00 [facility] Summary Purpose Family History No Family History Records FoundNo Family History Records Found Advance Directives No Advanced Directives Records FoundNo Advanced Directives Records Found Additional Source Comments INFORMATION SOURCE (unrecogn ized section and content) DATE CREATED AUTHOR 10/19/2021 [facility] DATE CREATED AUTHOR AUTHOR'S FAMILIA DELONG 02/22/2023 [facility] FOR RECORDS PERTAINING TO PATIENTS WHO ARE OR HAVE BEEN ENROLLED IN A CHEMICAL DEPENDENCY/SUBSTANCEABUSE PROGRAM, SOME INFORMATION MAY BE OMITTED. This clinical summary was aggregated from multiple sources. Caution should be exercised in using it in the provision of clinical care. This summary normalizes information from multiple sources, and as a consequence, information in this document may materially change the coding, format and clinical context of patient data. In addition, data may be omitted in some cases. CLINICAL DECISIONS SHOULD BE BASED ON THE PRIMARY CLINICAL RECORDS. [facility]. provides no warranty or guarantee of the accuracy or completeness of information in this document.
[2023-06-21] MEDS: IBUPROFEN 600 MG TABLET PO (21:17)
[2023-06-21] MEDS: HYDROCODONE/ACET 5-325 MG TABLET 2 TAB PO (21:56)
[2023-06-21] MEDS: ONDANSETRON 4 MG RAPDIS TABLET SL ×2 (21:56)
== END 2023-06-21 22:01 | disposition home or self-care (01) ==
PROVIDERS: Emergency Provider Emergency Medicine; PCP Internal Medicine
DX: S63.601A Unspecified sprain of right thumb, initial encounter (principal); W01.0XXA Fall on same level from slipping, tripping and stumbling without subsequent striking against object, initial encounter
CPT/HCPCS: 29280; 73140; 99283

== ENCOUNTER 2023-11-21 20:32 | Outpatient (REF) | payer OTHER, SELFPAY ==
--- OUTSIDE RECORDS SUMMARY | 2023-11-21 20:37 | XMS_ITS | CCD ---
Author Organization [facility] Care Team Providers Care Cash On Delivery Clerk Name Role Phone DR CARLI KABA Consulting Unavailable JHON, DR BOYCE Admitting Unavailable JHON, DR BOYCE Attending Unavailable [facility], [facility] Primary Care Unavailable PATRICIA EVANS Consulting Unavailable JHON, DR BOYCE Procedure Practitioner Unavailab le JHON, DR BOYCE Consulting Unavailable JHON, DR BOYCE Admitting Unavailable JHON, DR BOYCE Attending Unavailable [facility], [facility] Primary Care Unavailable JHON, DR BOYCE Attending Unavailable JHON, DR BOYCE Consulting Unavailable JHON, DR BOYCE Admitting Unavailable [facility], [facility] Primary Care Unavailable SETH MCGHEE Consulting Unavailable [facility], [facility] Primary Care Unavailable KATKO SETH Do Admitting Unavailable KATTAVIA SETH Do Attending Unavailable KATSETH SQUIRES Attending Unavailable [facility], [facility] Primary Care Unavailable KATKOSETH Consulting Unavailable LITZY SETH D Admitting Unavailable MARKER, DR MONSIVAIS Admitting Unavailable MARKER, DR MONSIVAIS Attending Unavailable MARKER, DR MONSIVAIS Consulting Unavailable [facility], [facility] Primary Care Unavailable DR JUVENAL NARVAEZ Admitting Unavailable BRICE, DR JUVENAL Berry Attending Unavailable FABRITTNEED, [facility] Primary Care Unavailable JHON, DR BOYCE Admitting Unavailable JHON, DR BOYCE Attending Unavailable JAYSON, [facility] Primary Care Unavailable JHON, DR BOYCE Admitting Unavailable JHON, DR BOYCE Attending Unavailable JHON, DR BOYCE Consulting Unavailable ANAHYWWAD, [facility] Primary Care Unavailable ROJAS ASENCIO Attending Unavailable ROJAS ASENCIO Attending Unavailable LUIS MROJAS GRAMAJO Attending Unavailable ROJAS ASENCIO Attending Unavailable Problems [...] 21 to 29on 08-31-2021 . . Normal [facility] Comment on above: Performed By: #### [id number] #### [facility] [address] [place] [address] Dr. Virginie Vela Age Gdln ACOG Testing 21-29 Normal [facility] Comment on above: Performed By: #### [id number] #### [facility] [address] [place] [address] Dr. Virginie Vela DIAGNOSIS: Comment Normal [facility] Comment on above: Result Comment: NEGA TIVE FOR INTRAEPITHELIAL LESION OR MALIGNANCY. THIS SPECIMEN WAS RESCREENED PART OF OUR CLOSING MANAGER PROGRAM. Performed By: #### [id number] #### [facility] [address] [place] [address] Dr. Virgiine Vela Methodology: Comment Normal [facility] Comment on above: Result Comment: This liquid based ThinPrep(R) pap test was screened with the use of an image guided system. Performed By: #### [id number] #### [facility] [address] [place] [address] Dr. Virginie Vela Note: Comment Normal [facility] Comment on above: Result Comment: The Pap smear is a screening test designed to aid in the detection of premalignant and malignant conditions of the uterine cervix. It is not a diagnostic procedure and should not be used as the sole means of detecting cervical cancer. Both false-positive and false-negative reports do occur. . Performed By: #### [id number] #### [facility] [address] [place] [address] Dr. Virginie Vela Performed by: Comment Normal [facility] Comment on above: Result Comment: Joaquina Rutherford, Buttermilk Drier Operator Performed By: #### [id number] #### [facility] [address] [place] [address] Dr. Virginie Vela QC reviewed by: Comment Normal [facility] Comment on above: Result Comment: Sarah Flor, Supervisory Buttermilk Drier Operator (ASCP) Performed By: #### [id number] #### [facility] [address] [place] [address] Dr. Virginie Vela Reflex Criteria: Comment Normal [facility] Comment on above: Result Comment: The HPV DNA reflex criteria were not met with this specimen result therefore, no HPV testing was performed. . Performed By: #### [id number] #### [facility] [address] [place] [address] Dr. Virginie Vela Specimen adequacy: Comment Normal [facility] Comment on above: Result Comment: Sati sfactory for evaluation. No endocervical component is identified. Performed By: #### [id number] #### [facility] [address] [place] [address] Dr. Virginie Vela BUNon 12-12-2020 Urea nitrogen [Mass/Vol] 12.0 mg/dL Normal 7.0-17.0 [facility] Comment on above: Performed By: #### C BC #### [facility] [address] [place] [address] Dr. Virginie Vela CBC AUTO DIFFon 12-12-2020 BASO # 0.0 103/ul Normal 0.0-0.1 [facility] Comment on above: Performed By: #### C BC #### [facility] [address] [place] [address] Dr. Virginie Vela Basophils/100 WBC (Bld) 0.2 % Normal 0.2-2.0 [facility] Comment on above: Performed By: #### C BC #### [facility] [address] [place] [address] Dr. Virginie Vela EO # 0.1 103/ul Normal 0.0-0.7 [facility] Comment on above: Performed By: #### C BC #### [facility] [address] [place] [address] Dr. Virginie Vlea Eosinophils/100 WBC (Bld) 0.5 % Critically low 0.9-7.0 [facility] Comment on above: Performed By: #### C BC #### [facility] [address] [place] [address] Dr. Virginie Vela Erythrocyte distribution width (RBC) [Ratio] 12.6 % Normal 11.0-15.0 [facility] Comment on above: Performed By: #### C BC #### [facility] [address] [place] [address] Dr. Virginie Vela Hematocrit (Bld) [Volume fraction] 36.1 % Normal 36.0-48.0 [facility] Comment on above: Performed By: #### C BC #### [facility] [address] [address] [address] Virginie Vela Hemoglobin (Bld) [Mass/Vol] 12.4 g/dL Normal 12.0-16.0 [facility] Comment on above: Performed By: #### C BC #### [facility] [address] [address] [address] Virginie Vela IG # 0.04 10e3/ul Critically high 0.00-0.03 [facility] Comment on above: Performed By: #### C BC #### [facility] [address] [place] [address] Dr. Virginie Vela IG % 0.4 % Normal 0.0-0.5 [facility] Comment on above: Performed By: #### C BC #### [facility] [address] [place] [address] Dr. Virginie Vela LYMPH # 2.8 103/ul Normal 1.2-3.8 [facility] Comment on above: Performed By: #### C BC #### [facility] [address] [place] [address] Dr. Virginie Vela Lymphocytes/100 WBC (Bld) 24.9 % Normal 20.5-60.0 [facility] Comment on above: Performed By: #### C BC #### [facility] [address] [place] [address] Dr. Virginie Vela MANUAL DIFF REQ NO Normal [facility] Comment on above: Performed By: #### C BC #### [facility] [address] [place] [address] Dr. Virginie Vela MCH (RBC) [Entitic mass] 30.9 pg Normal 26.7-34.0 [facility] Comment on above: Performed By: #### C BC #### [facility] [address] [place] [address] Dr. Virginie Vela MCHC (RBC) [Mass/Vol] 34.3 g/dL Normal 29.9-35.2 [facility] Comment on above: Performed By: #### C BC #### [facility] [address] [address] [address] Virginie Vela MCV (RBC) [Entitic vol] 90.0 fL Normal 81.0-99.0 [facility] Comment on above: Performed By: #### C BC #### [facility] [address] [place] [address] Dr. Virginie Vela MONO # 0.8 103/ul Normal 0.3-0.8 [facility] Comment on above: Performed By: #### C BC #### [facility] [address] [place] [address] Dr. Virginie Vela Monocytes/100 WBC (Bld) 7.6 % Normal 1.7-12.0 [facility] Comment on above: Performed By: #### C BC #### [facility] [address] [place] [address] Dr. Virginie Vela NEUT # 7.4 103/ul Critically high 1.4-6.5 [facility] Comment on above: Performed By: #### C BC #### [facility] [address] [place] [address] Dr. Virginie Vela Neutrophils/100 WBC (Bld) 66.4 % Normal 43.0-75.0 [facility] Comment on above: Performed By: #### C BC #### [facility] [address] [place] [address] Dr. Virginie Vela Platelet mean volume (Bld) [Entitic vol] 9.4 fL Critically low 9.5-13.5 [facility] Comment on above: Performed By: #### C BC #### [facility] [address] [place] [address] Dr. Virginie Vela PLT 189 103/ul Normal 150-450 [facility] Comment on above: Performed By: #### C BC #### [facility] [address] [place] [address] Dr. Virginie Vela RBC 4.01 106/ul Critically low 4.20-5.40 [facility] Comment on above: Performed By: #### C BC #### [facility] [address] [place] [address] Dr. Virginie Vela WBC 11.1 103/ul Critically high 4.0-11.0 [facility] Comment on above: Performed By: #### C BC #### [facility] [address] [place] [address] Dr. Virginie Vela CREATININEon 12-12-2020 Creatinine [Mass/Vol] 0.75 mg/dL Normal 0.52-1.04 [facility] Comment on above: Performed By: #### C MARCE, BUN #### [facility] [address] [place] [address] Dr. Virginie Vela EGFR-AF URUGUAYAN >60 Normal >=60 [facility] Comment on above: Performed By: #### C MARCE, BUN #### [facility] [address] [place] [address] Dr. Virginie Vela EGFR-NON AF URUGUAYAN >60 Normal >=60 [facility] Comment on above: Performed By: #### C MARCE, BUN #### [facility] [address] [place] [address] Dr. Virginie Vela CBC AUTO DIFFon 12-11-2020 BASO # 0.1 103/ul Normal 0.0-0.1 [facility] Comment on above: Performed By: #### C BC #### [facility] [address] [place] [address] Dr. Virginie Vela Basophils/100 WBC (Bld) 0.7 % Normal 0.2-2.0 [facility] Comment on above: Performed By: #### C BC #### [facility] [address] [place] [address] Dr. Virginie Vela EO # 0.3 103/ul Normal 0.0-0.7 [facility] Comment on above: Performed By: #### C BC #### [facility] [address] [place] [address] Dr. Virginie Vela Eosinophils/100 WBC (Bld) 3.6 % Normal 0.9-7.0 [facility] Comment on above: Performed By: #### C BC #### [facility] [address] [place] [address] Dr. Virginie Vela Erythrocyte distribution width (RBC) [Ratio] 13.0 % Normal 11.0-15.0 [facility] Comment on above: Performed By: #### C BC #### [facility] [address] [place] [address] Dr. Virginie Vela Hematocrit (Bld) [Volume fraction] 42.8 % Normal 36.0-48.0 [facility] Comment on above: Performed By: #### C BC #### [facility] [address] [place] [address] Dr. Virginie Vela Hemoglobin (Bld) [Mass/Vol] 14.4 g/dL Normal 12.0-16.0 [facility] Comment on above: Performed By: #### C BC #### [facility] [address] [place] [address] Dr. Virginie Vela IG # 0.02 10e3/ul Normal 0.00-0.03 [facility] Comment on above: Performed By: #### C BC #### [facility] [address] [place] [address] Dr. Virginie eVla IG % 0.3 % Normal 0.0-0.5 [facility] Comment on above: Performed By: #### C BC #### [facility] [address] [place] [address] Dr. Virginie Vela LYMPH # 2.6 103/ul Normal 1.2-3.8 [facility] Comment on above: Performed By: #### C BC #### [facility] [address] [place] [address] Dr. Virginie Vela Lymphocytes/100 WBC (Bld) 36.0 % Normal 20.5-60.0 [facility] Comment on above: Performed By: #### C BC #### [facility] [address] [place] [address] Dr. Virginie Vela MANUAL DIFF REQ NO Normal [facility] Comment on above: Performed By: #### C BC #### [facility] [address] [place] [address] Dr. Virginie Vela MCH (RBC) [Entitic mass] 30.3 pg Normal 26.7-34.0 [facility] Comment on above: Performed By: #### C BC #### [facility] [address] [place] [address] Dr. Virginie Vela MCHC (RBC) [Mass/Vol] 33.6 g/dL Normal 29.9-35.2 [facility] Comment on above: Performed By: #### C BC #### [facility] [address] [place] [address] Dr. Virginie Vela MCV (RBC) [Entitic vol] 90.1 fL Normal 81.0-99.0 [facility] Comment on above: Performed By: #### C BC #### [facility] [address] [place] [address] Dr. Virginie Vela MONO # 0.5 103/ul Normal 0.3-0.8 [facility] Comment on above: Performed By: #### C BC #### [facility] [address] [place] [address] Dr. Virginie Vela Monocytes/100 WBC (Bld) 6.3 % Normal 1.7-12.0 [facility] Comment on above: Performed By: #### C BC #### [facility] [address] [place] [address] Dr. Virginie Vela NEUT # 3.9 103/ul Normal 1.4-6.5 [facility] Comment on above: Performed By: #### C BC #### [facility] [address] [place] [address] Dr. Virginie Vela Neutrophils/100 WBC (Bld) 53.1 % Normal 43.0-75.0 [facility] Comment on above: Performed By: #### C BC #### [facility] [address] [place] [address] Dr. Virginie eVla Platelet mean volume (Bld) [Entitic vol] 9.2 fL Critically low 9.5-13.5 [facility] Comment on above: Performed By: #### C BC #### [facility] [address] [place] [address] Dr. Virginie Vela PLT 246 103/ul Normal 150-450 [facility] Comment on above: Performed By: #### C BC #### [facility] [address] [address] [address] Virginie Vela RBC 4.75 106/ul Normal 4.20-5.40 [facility] Comment on above: Performed By: #### C BC #### [facility] [address] [address] [address] Virginie Vela WBC 7.3 103/ul Normal 4.0-11.0 [facility] Comment on above: Performed By: #### C BC #### [facility] [address] [address] [address] Virginie Vela PREG QUANT HCGon 12-11-2020 HCG QUANT <1 Normal [facility] Comment on above: Performed By: #### P REGQNT #### [facility] [address] [address] [address] Virginie Vela HCG RANGE SEE BELOW Normal [facility] Comment on above: Result Comment: 5-50 0-1 WEEK 40-300 1-2 WEEKS 100-1,000 2-3 WEEKS 500-6,000 3-4 WEEKS 5,000-200,000 1-2 MONTHS 10,000-100,000 2-3 MONTHS 3,000-50,000 2ND TRIMESTER 1,000-50,000 3RD TRIMESTER Performed By: #### P REGQNT #### [facility] [address] [address] [address] Virginie V[facility]on SARS-CoV-2 (COVID-19) RNA TATYANA+probe Ql (Unsp spec) Not detected Normal NOT DETECTED [facility] Comment on above: Result Comment: This test is not yet approved or cleared by the [place] FDA. When there are no FDA-approved or cleared tests available, and other criteria are met, FDA can make tests available under an emergency access mechanism called an Emergency Use Authorization (EUA). The EUA for this test is supported by the [place] of Health and Human Service's (HHS's) declaration [...] SARS-CoV-2. Performed By: #### C BC #### [facility] [address] [place] [address] Dr. Virginie Vela TYPE AND SCREENon 12-08-2020 TYPE AND SCREEN Negative Normal [facility] Comment on above: Performed By: #### T NS #### [facility] [address] [place] [address] Dr. Virginie Vela CBC AUTO DIFFon 11-10-2020 BASO # 0.1 103/ul Normal 0.0-0.1 [facility] Comment on above: Performed By: #### C BC #### [facility] [address] [place] [address] Dr. Virginie Vela Basophils/100 WBC (Bld) 0.7 % Normal 0.2-2.0 [facility] Comment on above: Performed By: #### C BC #### [facility] [address] [place] [address] Dr. Virginie Vela EO # 0.3 103/ul Normal 0.0-0.7 [facility] Comment on above: Performed By: #### C BC #### [facility] [address] [place] [address] Dr. Virginie Vela Eosinophils/100 WBC (Bld) 3.4 % Normal 0.9-7.0 [facility] Comment on above: Performed By: #### C BC #### [facility] [address] [place] [address] Dr. Virginie Vela Erythrocyte distribution width (RBC) [Ratio] 12.5 % Normal 11.0-15.0 [facility] Comment on above: Performed By: #### C BC #### [facility] [address] [place] [address] Dr. Virginie Vela Hematocrit (Bld) [Volume fraction] 42.9 % Normal 36.0-48.0 [facility] Comment on above: Performed By: #### C BC #### [facility] [address] [place] [address] Dr. Virginie Vela Hemoglobin (Bld) [Mass/Vol] 14.3 g/dL Normal 12.0-16.0 [facility] Comment on above: Performed By: #### C BC #### [facility] [address] [place] [address] Dr. Virginie Vela IG # 0.02 10e3/ul Normal 0.00-0.03 [facility] Comment on above: Performed By: #### C BC #### [facility] [address] [place] [address] Dr. Virginie Vela IG % 0.3 % Normal 0.0-0.5 [facility] Comment on above: Performed By: #### C BC #### [facility] [address] [place] [address] Dr. Virginie Vela LYMPH # 2.8 103/ul Normal 1.2-3.8 [facility] Comment on above: Performed By: #### C BC #### [facility] [address] [place] [address] Dr. Virginie Vela Lymphocytes/100 WBC (Bld) 37.3 % Normal 20.5-60.0 [facility] Comment on above: Performed By: #### C BC #### [facility] [address] [place] [address] Dr. Virginie Vela MANUAL DIFF REQ NO Normal [facility] Comment on above: Performed By: #### C BC #### [facility] [address] [place] [address] Dr. Virginie Vela MCH (RBC) [Entitic mass] 29.7 pg Normal 26.7-34.0 [facility] Comment on above: Performed By: #### C BC #### [facility] [address] [place] [address] Dr. Virginie Vela MCHC (RBC) [Mass/Vol] 33.3 g/dL Normal 29.9-35.2 [facility] Comment on above: Performed By: #### C BC #### [facility] [address] [place] [address] Dr. Virginie Vela MCV (RBC) [Entitic vol] 89.0 fL Normal 81.0-99.0 [facility] Comment on above: Performed By: #### C BC #### [facility] [address] [place] [address] Dr. Virginie Vela MONO # 0.4 103/ul Normal 0.3-0.8 [facility] Comment on above: Performed By: #### C BC #### [facility] [address] [place] [address] Dr. Virginie Vela Monocytes/100 WBC (Bld) 5.7 % Normal 1.7-12.0 [facility] Comment on above: Performed By: #### C BC #### [facility] [address] [place] [address] Dr. Virginie Vela NEUT # 4.0 103/ul Normal 1.4-6.5 [facility] Comment on above: Performed By: #### C BC #### [facility] [address] [place] [address] Dr. Virginie Vela Neutrophils/100 WBC (Bld) 52.6 % Normal 43.0-75.0 [facility] Comment on above: Performed By: #### C BC #### [facility] [address] [place] [address] Dr. Virginie Vela Platelet mean volume (Bld) [Entitic vol] 9.2 fL Critically low 9.5-13.5 [facility] Comment on above: Performed By: #### C BC #### [facility] [address] [place] [address] Dr. Virginie Vela PLT 238 103/ul Normal 150-450 [facility] Comment on above: Performed By: #### C BC #### [facility] [address] [place] [address] Dr. Virginie Vela RBC 4.82 106/ul Normal 4.20-5.40 [facility] Comment on above: Performed By: #### C BC #### [facility] [address] [place] [address] Dr. Virginie Vela WBC 7.6 103/ul Normal 4.0-11.0 [facility] Comment on above: Performed By: #### C BC #### [facility] [address] [place] [address] Dr. Virginie Vela TSHon 11-10-2020 TSH 0.662 uIU/mL Normal 0.470-4.680 [facility] Comment on above: Performed By: #### T SH #### [facility] [address] [place] [address] Dr. Virginie Vela TSH RANGE SEE BELOW Normal [facility] Comment on above: Result Comment: <0.3 4 UIU/ml HYPERTHYROID 0.34-5.60 UIU/ml EUTHYROID >5.60 UIU/ml HYPOTHYROID Performed By: #### T SH #### [facility] [address] [place] [address] Dr. Virginie Vela UA RANDOMon 11-10-2020 Bilirubin Ql (U) Negative Normal NEGATIVE [facility] Comment on above: Performed By: #### C BC #### [facility] [address] [place] [address] Dr. Virginie Vela Clarity (U) CLEAR Normal CLEAR [facility] Comment on above: Performed By: #### C BC #### [facility] [address] [place] [address] Dr. Virginie Vela Color (U) LT. YELLOW Normal YELLOW [facility] Comment on above: Performed By: #### C BC #### [facility] [address] [place] [address] Dr. Virgiine Vela Glucose Ql (U) Negative Normal NEGATIVE [facility] Comment on above: Performed By: #### C BC #### [facility] Laboratory [address] [place] [address] Dr. Virginie Vela Hemoglobin Ql (U) Negative Normal NEGATIVE [facility] Comment on above: Performed By: #### C BC #### [facility] [place] [facility] [address] [address] [address] Virginie Vela Ketones Ql (U) Negative Normal NEGATIVE [facility] Comment on above: Performed By: #### C BC #### [facility] [place] [facility] [address] [address] [address] Virginie Vela LEUKOCYTES Negative Normal NEGATIVE [facility] Comment on above: Performed By: #### C BC #### [facility] [place] [facility] [address] [address] [address] Virginie Vela Nitrite Ql (U) Negative Normal NEGATIVE [facility] Comment on above: Performed By: #### C BC #### [facility] [place] [facility] [address] [place] [address] Dr. Virginie Vela pH (U) 7.0 [pH] Normal 5-9 [facility] Comment on above: Performed By: #### C BC #### [facility] [place] [facility] [address] [address] [address] Virginie Vela SPEC GRAVITY 1.010 Normal 1.005-<=1.025 [facility] Comment on above: Performed By: #### C BC #### [facility] [place] [facility] [address] [address] [address] Virginie Vela UA PROTEIN Negative Normal NEGATIVE/ TRACE [facility] Comment on above: Performed By: #### C BC #### [facility] [place] [facility] [address] [address] [address] Virginie Vela Urobilinogen Qn (U) 0.2 {Hortensia'U}/dL Normal 0.2 - 1.0 [facility] Comment on above: Performed By: #### C BC #### [facility] [place] [facility] [address] [place] [address] Dr. Virginie Vela Encounters Encounter Date Encounter Type Care Provider Facility Start: 10-26-2023 End: 10-26-2023 ambulatory ROJAS ASENCIO Not Available Start: 02-21-2023 End: 02-21-2023 ambulatory ROJAS ASENCIO [...] prepro cedural laboratory examination DR CARLI KABA [facility] Start: 12-11-2020 End: 12-12-2020 Evaluation and management of inpatient DR CARLI KABA Facility:[facility] Start: 12-08-2020 End: 12-08-[address] CARLI KABA Facility:[facility] Start: 12-08-2020 End: 12-08-2020 Encounter for preprocedural laboratory examination DR CARLI KABA Facility:[facility] Start: 12-04-2020 Encounter for other preprocedural examination DR CARLI KABA [facility] Start: 11-27-2020 End: 11-28-[address] [...] KABA Payers Date Payer Category Payer Unknown [id number] 2.16.84 [id number] 1994 Unknown [id number] 2.16.84 [id number] 1994 Unknown [id number] 2.16.84 0.1.176205.3.579.2.593 1994 Unknown [id number] 2.16.84 0.1.747350.3.579.2.593 1994 Unknown [id number] 2.16.84 0.1.882372.3.579.2.593 1994 Unknown [id number] 2.16.84 0.1.928870.3.579.2.593 1994 Unknown [id number] 2.16.84 0.1.942103.3.579.2.593 1994 Unknown [id number] 2.16.84 0.1.728933.3.579.2.593 1994 Unknown [id number] 2.16.84 0.1.912549.3.579.2.593 1994 Unknown [id number] 2.16.84 0.1.129259.3.579.2.1259 1994 Unknown [id number] 2.16.84 0.1.474464.3.579.2.1259 1994 Unknown [id number] 2.16.840 .1.871630.3.579.2.1259 1994 Unknown [id number] 2.16.840 .1.463052.3.579.2.1259 1959 Unknown [id number] Clinical Note 12-11-2020 Note Date & Type Note Facility 12-11-2020 Note [facility] [place], [place] NAME: RAJ JOLLEY DATE OF : MEDICAL REC#: [id number] BIOMEDICAL SPECIALIST: NAN ASHADMNARCISO DATE: 12/11/2020 08:23:00 OPERATOR MAINTAINER DATE: 12/12/2020 13:48 DICTATING PHYSICIAN: CARLI KABA DICTATION DATE: 12/11/2020 12:00 OPERATIVE NOTE OPERATION DATE: 12/11/2020 PROCEDURE NAME: Total abdominal hysterectomy with bilateral salpingectomy with cystoscopy. PREOPERATIVE DIAGNOSES: 1. Menorrhagia. 2. Abnormal uterine bleeding. 3. Pelvic pain. 4. Dysmenorrhea. 5. Dyspareunia. POSTOPERATIVE DIAGNOSES: 1. Menorrhagia. 2. Abnormal uterine bleeding. 3. Pelvic pain. 4. Dysmenorrhea. 5. Dyspareunia. ANESTHESIA: General. SURGEON: Carli Kaba D.O. BUSINESS OPERATIONS CONSULTANT: ARGENIS Fiore URINE OUTPUT: Yellow and clear. [...] Kaba DO on 12/13/2020 04:59 PM EST [facility] Signed and Approved by: DR CARLI KABA . 12/13/2020 16:59:00 [facility] Discharge summary note 12-11-2020 Note Date [...] by: DR CARLI KABA . 12/25/2020 08:38:00 [facility] Summary Purpose Family History No Family History Records FoundNo Family History Records Found Advance Directives No Advanced Directives Records FoundNo Advanced Directives Records Found Additional Source Comments INFORMATION SOURCE (unrecogn ized section and content) DATE CREATED AUTHOR 10/19/2021 [facility] DATE CREATED AUTHOR AUTHOR'S FAMILIA ATJORDAN 10/28/2023 [facility] EPIC FOR RECORDS PERTAINING TO PATIENTS WHO ARE [...] BE BASED ON THE PRIMARY CLINICAL RECORDS. [facility] [employer] [facility]. provides no warranty or guarantee of the accuracy or completeness of information in this document.
[2023-11-27 14:09] LABS: Age Gdln ACOG Testing Note (.); IGP, rfx Aptima HPV ASCU Note (.)
== END 2023-11-21 20:33 | disposition home or self-care (01) ==
LOC: LAB 20:32
PROVIDERS: Visit Provider Physician Assistant
DX: Z01.419 Encounter for gynecological examination (general) (routine) without abnormal findings (principal)
CPT/HCPCS: 88175